=== PATIENT | male | born 1960 | race Caucasian/White ===

== ENCOUNTER 2025-02-13 22:03 | Emergency (ER) | payer OTHER, SELFPAY ==
[2025-02-13 22:06] VITALS: BP 165/103
--- NOTE | 2025-02-13 23:45 | ED.GENMED ---
History of Present Illness
General
Chief Complaint: Skin Surface Trauma
Time Seen by Provider: 02/13/25 23:16
History of Present Illness
History of Present Illness:
64-year-old male presents to the emergency department for laceration sustained when he accidentally grabbed the blade of an [employer] knife. Bleeding controlled with pressure. Last tetanus is unknown
Past History
Past History
ED Past Medical History: None
ED Past Surgical History: Other (hernia)
Social History
Tobacco: Non-smoker
Alcohol: Occasional
Personal:
Living: with family
Employment: Employed
Family History
Family History: Other (Noncontributory)
Review of Systems
Review of Systems
Allergies reviewed?: Yes
All Other Systems: ROS reviewed and negative except as documented in HPI and ROS
Phy Exam
Physical Exam
Physical Exam:
GEN: Well appearing, NAD, WDWN
HEENT: Oral mucosa moist, no scleral icterus
Cardiac: Regular rate
Lung: No respiratory distress, no tachypnea
MSK: No gross deformity or injuries
Skin: Good color, no pallor or jaundice, no rashes. 1 cm linear laceration to the left index finger pad with mild active bleeding, no foreign body
Neuro: AO x3, moves all extremities freely
Psych: Calm, cooperative
Course
Orders/Labs/Results
Orders:
Orders
02/13/25 23:45
Tetanus/Diphth/Acelpertussis [Adacel] 0.5 ml IM .ONCE ONE
Vital Signs
Initial and Last Documented VS:
Initial Vital Signs
Temp Pulse Resp BP Pulse Ox
97.9 F 88 20 165/103 94
02/13/25 22:06 02/13/25 22:06 02/13/25 22:06 02/13/25 22:06 02/13/25 22:06
Last Documented Vital Signs
Temp Pulse Resp BP Pulse Ox
97.9 F 82 18 140/85 98
02/13/25 22:06 02/14/25 00:05 02/14/25 00:05 02/14/25 00:05 02/14/25 00:05
MDM/Problems Addressed
MDM/Problems Addressed:
Wound irrigated with normal saline and reapproximated with skin glue. Tetanus status updated
*Pulse Oximetry
SaO2: 94
Oxygen Mode of Delivery: Room air
Patient hypoxic: no
*Critical Care Note
Total Time (30-74mins, 75-104mins- exclusive of procedures): Not Applicable
ED Attending Note
-
Portions of this chart may have been created with voice recognition software.� Occasional wrong word or��sound alike� substitutions may have occurred due to the inherent limitations of voice recognition software.
Discharge Plan
Departure
Patient Disposition: Home (Routine Discharge)
Date of Disposition: 02/13/25
Time of Disposition: 23:45
Patient with high blood pressure during this ER visit?: No
Discharge Problem:
Laceration of left index finger
Instructions: Laceration Repair With Glue (DC)
Prescriptions:
No Action
tobramycin [Tobrex] 5 ML drops
2 drp LEFT EYE Q4H Qty: 1 0RF
Interventions
Interventions:
*General Assessment Last Done: 02/13/25 22:06
*Neglect/Abuse Screening Last Done: 02/14/25 00:06
*ED COVID-19 Vaccine History Last Done: 02/14/25 00:06
*ED Influenza Vaccine History Last Done: 02/14/25 00:06
[facility] Fall Risk Assessment Tool Last Done: 02/14/25 00:06
*Risk Screen - Suicide (C-SSRS) Last Done: 02/13/25 22:06
*Nursing Disposition Last Done: 02/14/25 00:07
ED-Skin Assessment Last Done: 02/14/25 00:06
Discharge Date and Time
Discharge Date/Time: 02/14/25 00:07
Print Language: PAKIST[place]
[2025-02-14] MEDS: ADACEL 0.5 ML IM (00:02)
[2025-02-14 00:05] VITALS: BP 140/85
== END 2025-02-14 00:07 | disposition home or self-care (01) ==
LOC: EMR 22:03
PROVIDERS: EMERGENCY PHYSICIAN Student in an Organized Health Care Education/Training Program; FAMILY PHYSICIAN Nurse Practitioner Family
DX: S61.211A Laceration without foreign body of left index finger without damage to nail, initial encounter (principal); W26.0XXA Contact with knife, initial encounter; Z23 Encounter for immunization
CPT/HCPCS: 90471; 12001; 99282; 90715